=== PATIENT | female | born 1945 ===

== ENCOUNTER 2017-05-06 17:55 | Emergency (ER) | payer MEDICARE, MEDICAID ==
[2017-05-06 17:55] VITALS: BMI 20.7
[2017-05-06] MEDS ORDERED: Sodium Chloride 0.9% 500 ML IV ONE (19:58)
[2017-05-06 20:20] LABS: BASO # 0.1 K/uL (0.0-0.2); BASO % 0.8 % (0.0-2.0); EOS # 0.4 K/uL (0.0-0.7); EOS % 4.1 % (0.0-4.0); HEMATOCRIT 34.8 % (34.0-47.0); LYMPH # 3.3 K/uL (1.0-4.3); LYMPH % 35.6 % (20.0-40.0); MEAN CELL VOLUME 85.1 fL (81.0-99.0); MEAN CORPUSCULAR HEMOGLOBIN 27.8 pg (27.0-31.0); MEAN CORPUSCULAR HGB CONC 32.7 g/dL (33.0-37.0); MEAN PLATELET VOLUME 8.7 fL (7.2-11.7); MONO # 0.8 K/uL (0.0-0.8); RED CELL DISTRIBUTION WIDTH 13.2 % (11.5-14.5); WHITE BLOOD COUNT 9.2 K/uL (4.8-10.8)
[2017-05-06 20:25] LABS: RBC URINE < 1 /hpf (0-3); URINE BACTERIA RARE (<OCC); URINE BILIRUBIN NEGATIVE (NEGATIVE); URINE BLOOD 1+ (NEGATIVE); URINE COLOR Colorless (YELLOW); URINE GLUCOSE (UA) NORMAL (Normal); URINE KETONE NEGATIVE (NEGATIVE); URINE PROTEIN NEGATIVE (NEGATIVE); URINE UROBILINOGEN NORMAL mg/dL (0.2-1.0)
[2017-05-06 20:28] LABS: URINE LEUKOCYTE ESTERASE 1+ Leu/uL (Negative); WBC URINE 5 /hpf (0-5)
[2017-05-06 20:29] LABS: CHLORIDE 101 mmol/L (98-107); POTASSIUM 4.1 mmol/L (3.6-5.2); SODIUM 135 mmol/L (132-148)
[2017-05-06 20:31] LABS: GFR AFRICAN-AMERICAN > 60
[2017-05-06 20:32] LABS: ALKALINE PHOSPHATASE 62 U/L (38-126); ALT/SGPT 38 U/L (9-52); AST/SGOT 19 U/L (14-36); BILIRUBIN,TOTAL 0.4 mg/dL (0.2-1.3); BLOOD UREA NITROGEN 10 mg/dL (7-17); CALCIUM 9.1 mg/dl (8.6-10.4); CARBON DIOXIDE 28 mmol/L (22-30); GLUCOSE,RANDOM 91 mg/dL (65-105); TOTAL PROTEIN 7.9 g/dL (6.3-8.3)
--- NOTE | 2017-05-06 22:05 | C.PDOC ---
History Of Present Illness Patient presents to ED c/o dizziness, described as the room spinning around, her for approx 2 weeks but worse today. Dizziness worsens with movement of her head, and is associated with nausea and generalized weakness. Patient denies chest pain, SOB, palpitations, focal extremity weakness, sensory changes, facial droop, slurred speech, visual changes. Time Seen by Provider: 05/06/17 19:41 Chief Complaint (Nursing): Weakness/Neurological Deficit History Per: Patient, Family (daughter at bedside ) History/Exam Limitations: language barrier Onset/Duration Of Symptoms: Days (2 weeks, worse roday ) Current Symptoms Are (Timing): Still Present Activity At Onset Of Symptoms: Change In Head Position Past Medical History Reviewed: Historical Data, Nursing Documentation, Vital Signs Vital Signs: Last Vital Signs Temp 97.5 F L 05/06/17 22:18 Pulse 80 05/06/17 22:18 Resp 20 05/06/17 22:18 BP 127/70 05/06/17 22:18 Pulse Ox 100 05/06/17 22:18 - Medical History PMH: Anemia, Osteoporosis Other PMH: deboraha nella - [facility] Procedures CLOSED ENDOSCOPIC BIOPSY OF LARGE INTESTINE (06/25/13) ESOPHAGOGASTRODUODENOSCOPY [EGD] W/CLOSED BIOPSY (06/25/13) Family History: States: No Known Family Hx - Social History Hx Alcohol Use: No Hx Substance Use: No Review Of Systems Except As Marked, All Systems Reviewed And Found Negative. Constitutional: Negative for: Fever, Chills Cardiovascular: Negative for: Chest Pain, Palpitations Respiratory: Negative for: Cough, Shortness of Breath Gastrointestinal: Positive for: Nausea. Negative for: Vomiting, Abdominal Pain , Diarrhea Neurological: Positive for: Dizziness. Negative for: Weakness, Numbness, Seizures, Altered Mental Status, Headache Physical Exam - Physical Exam Appears: Well, Non-toxic, In Acute Distress (in mild distress) Skin: Normal Color, Warm, Dry Head: Atraumatic, Normacephalic Eye(s): bilateral: Normal Inspection (no nystagmus), PERRL, EOMI Oral Mucosa: Moist Neck: Normal, Normal ROM, Supple, Other (no meningismus) Cardiovascular: Rhythm Regular Respiratory: Normal Breath Sounds, No Rales, No Rhonchi, No Wheezing Gastrointestinal/Abdominal: Normal Exam, Bowel Sounds, Soft, No Tenderness Extremity: Normal ROM, No Pedal Edema, No Calf Tenderness, No Deformity Extremity: Bilateral: Atraumatic, Normal Color And Temperature, Normal ROM Pulses: Left Dorsalis Pedis: Normal, Right Dorsalis Pedis: Normal Neurological/Psych: Oriented x3, Normal Speech, Normal Cognition, Normal Cranial Nerves, No Cerebellar Signs, Normal Motor, Normal Sensation, No Dysarthria, No Romberg Gait: Steady ED Course And Treatment - Laboratory Results Result Diagrams: 05/06/17 20:16 05/06/17 20:16 ECG: Interpreted By Me, Viewed By Me (NST 71 bpm, left axis deviation, no acute ST/T wave changes) ECG Interpretation: Normal O2 Sat by Pulse Oximetry: 97 (RA) Pulse Ox Interpretation: Normal - CT Scan/US CT HEAD Other Rad Studies (CT/US): Read By Radiologist, Radiology Report Reviewed CT/US Interpretation: Name: JENNIFER SHELTON Age: 71Years F Date: 05/06/2017. Requesting Physician: BELÉN SIMMONS : 1945. [facility] Procedure Ordered As Accession Number of Images. CT HEAD WO CT HEAD W O CONTRAST [id number]. Provided Clinical History: DIZZINESS. Page 1 of 2. EXAM: CT Head Without Intravenous Contrast. CLINICAL HISTORY: 71 years old, female; Signs and symptoms; Dizziness. TECHNIQUE: Axial computed tomography images of the head/brain without intravenous contrast. All CT scans at. this facility use one or more dose reduction techniques, viz.: automated exposure control; ma/kV. adjustment per patient size (including targeted exams where dose is matched to indication; i.e. head);. or iterative reconstruction technique. Coronal and sagittal reformatted images were created and reviewed. COMPARISON: No relevant prior studies available. FINDINGS: Brain: Mild volume loss is seen in keeping with age. Mild decrease in attenuation of the. periventricular white matter likely related to small vessel ischemic change. The brain otherwise with. normal guerrero-white matter differentiation, demonstrating no edema, mass effect, acute hemorrhage, or. focal mass. Ventricles: Unremarkable. No ventriculomegaly. Bones/joints: Unremarkable. No acute fracture. Soft tissues: Unremarkable. Sinuses: Sinuses are clear without air-fluid levels, or mucoperiosteal thickening. Mastoid air cells: Unremarkable as visualized. No mastoid effusion. IMPRESSION: There is mild atrophy and chronic white matter ischemic changes, with no evidence of an acute. intracranial abnormality. Progress Note: Blood work, CT head, UA, EKG ordered and reviewed. Patient given IV NS bolus, PO Meclizine 50mg. Reevaluation Time: 22:10 Reassessment Condition: Improved (On reassessment, patient states she is feeling much better. She is able to ambulate normally in ED, and states she would like to be discharged home. rx for meclizine given, and patient instructed to follow up with PMD in 1-2 days, and with ENT within 1 week. She/ daughter understand she should return to ED if symptoms worsen.) Disposition Counseled Patient/Family Regarding: Studies Performed, Diagnosis, Need For Followup, Rx Given - Disposition Referrals: Glenna Ellis MD [Staff Provider] - Howard Clay MD [Staff Provider] - Disposition: HOME/ ROUTINE Disposition Time: 22:10 Condition: STABLE Additional Instructions: FOLLOW UP WITH ENT WITHIN 1 WEEK USE MEDICATION NEEDED RETURN TO ER IF SYMPTOMS WORSEN Prescriptions: Meclizine [Meclizine*] 25 mg PO Q6 #20 tab Instructions: Benign Paroxysmal Positional Vertigo (ED) Forms: [facility] (Irish) Print Language: JAMAICAN - Clinical Impression Clinical Impression: BPV (benign positional vertigo)
[2017-05-06 22:19] VITALS: BP 127/70; PULSE 80; RESP 20; TEMP 97.5
[2017-05-07 00:16] VITALS: O2SAT 97
--- NOTE | 2017-05-07 08:28 | CT ---
PROCEDURE: CT HEAD WITHOUT CONTRAST. HISTORY: DIZZINESS COMPARISON: None available. TECHNIQUE: Axial computed tomography images were obtained through the head/brain without intravenous contrast. Radiation dose: Total exam DLP = 752 mGy-cm. This CT exam was performed using one or more of the following dose reduction techniques: Automated exposure control, adjustment of the mA and/or kV according to patient size, and/or use of iterative reconstruction technique. FINDINGS: HEMORRHAGE: No intracranial hemorrhage. BRAIN: Mild volume loss. Scattered focal lucencies in the subcortical and periventricular white matter suggestive for chronic microvascular ischemic change. VENTRICLES: Unremarkable. No hydrocephalus. CALVARIUM: Unremarkable. PARANASAL SINUSES: Unremarkable as visualized. No significant inflammatory changes. MASTOID AIR CELLS: Unremarkable as visualized. No inflammatory changes. OTHER FINDINGS: None. IMPRESSION: Mild atrophy and chronic white matter ischemic changes. No evidence of acute intracranial abnormality. If focal neurologic deficit persists, consider MRI. These findings were preliminarily reported at 9:24 p.m. on 05/06/[address] Anthony Tabares from [facility].
--- NOTE | 2017-05-07 12:24 | CARD ---
APPROVED REPORT EKG Measurement Heart [id number] <Conclusion> Normal sinus rhythm Possible Left atrial enlargement Borderline ECG
== END 2017-05-06 22:21 | disposition home or self-care (01) ==
LOC: C.ER 17:55
DX: H81.10 Benign paroxysmal vertigo, unspecified ear (principal)
CPT/HCPCS: 70450; 80053; 81001; 85025; 93005; 99285; J7040

== ENCOUNTER 2017-09-18 08:01 | Day surgery (SDC) | payer MEDICARE, MEDICAID ==
[2017-09-02 08:17] VITALS: BMI 21.4
[~2017-09-18 08:01] MED LIST: Ciprofloxacin 0.3% OPTH SOLN OS SCH; Flurbiprofen 0.03% Opht SOLN OS SCH; Lactated Ringer's 500 ML IV ONE; Phenylephrine 2.5% Opht Soln OS SCH; Tropicamide 1% Opht SOLUTION OS SCH; acetaZOLAMIDE 500 mg SR Cap PO ONE
[2017-09-18] MEDS: Tetracaine 0.5% Ophth (OR ONLY) ONE ×2 (08:27→11:05)
[2017-09-18] MEDS: Lidocaine 2% Inj (20ml) ONE ×2 (08:28→11:06)
[2017-09-18] MEDS: Povidone Iodine Ophthalmic 5% Soln ONE ×2 (08:28→11:05)
[2017-09-18] MEDS: Hyaluronidase Human, Recombi 150 U/ML VIAL ONE ×2 (08:30→11:06)
[2017-09-18] MEDS: Carbachol 0.01% IO ONE ×2 (08:31→11:12)
[2017-09-18] MEDS: Tobramycin/Dexamethasone OPHT OINT ONE ×2 (08:32→11:25)
[2017-09-18] MEDS: Chondroitin/Hyaluronate Opth Syringe KIT (0.55 ml-0.5 ml) IO ONE ×2 (08:34→11:15)
[2017-09-18] MEDS ORDERED: Lactated Ringer's 500 ML IV ONE (08:50)
[2017-09-18] MEDS ORDERED: Midazolam 2 MG/2 ML VIAL ONE (11:05)
[2017-09-18] MEDS ORDERED: acetaZOLAMIDE 500 mg SR Cap PO ONE (11:45)
[2017-09-18 13:38] VITALS: PULSE 72; RESP 16; O2SAT 99
[2017-09-18 13:39] VITALS: BP 105/57; TEMP 97.4
--- NOTE | 2017-09-18 20:16 | OP ---
PROCEDURE DATE: 09/18/2017 PREOPERATIVE DIAGNOSIS: Cataract, left eye. POSTOPERATIVE DIAGNOSIS: Cataract, left eye. OPERATIVE PROCEDURE: Phacoemulsification, left eye, insertion of posterior chamber implant. SURGEON: Dr. Luis Vargas MD. CO-SURGEON: Lucius Shaw MD. ANESTHESIA TYPE: Local with IV sedation. PROCEDURE: The patient was brought into the operating room, placed in supine position, prepped and draped in the usual fashion for ophthalmic surgery. Lid speculum was inserted, lids and exposing globe. A side-port incision was made superiorly and inferiorly with a disposable sharp blade. Anterior chamber was filled with Viscoat. A near clear corneal incision was made temporally with a 2.75-mm keratome. Capsulorrhexis was then performed with Utrata forceps. Hydrodissection carried out with balanced salt solution. Nucleus was phacoemulsified. Remaining cortical fragments were removed with a split irrigation and aspiration system. The capsular sac was filled with Provisc. A posterior chamber lens was then injected into the capsular sac and rotated into horizontal position. Provisc was aspirated out of the anterior chamber. The pupil was constricted with Miochol. The wound was found to be watertight. Topical Betadine, Timoptic, and TobraDex ointment and pressure patch were applied. The patient tolerated the procedure well. Luis Vargas MD
== END 2017-09-18 12:38 | disposition home or self-care (01) ==
LOC: C.SDS 08:01
PROVIDERS: ATTEND Ophthalmology
DX: H25.12 Age-related nuclear cataract, left eye (principal)
CPT/HCPCS: 66984; J2250; J3010; J3470; J7120; V2632

== ENCOUNTER 2017-12-18 05:55 | Emergency (ER) | payer MEDICARE, MEDICAID ==
[2017-12-18 05:55] VITALS: BMI 21.4
[2017-12-18] MEDS ORDERED: Sodium Chloride 0.9% 1,000 ML IV ONE (06:18)
--- NOTE | 2017-12-18 06:18 | C.PDOC ---
History Of Present Illness Patient presents to the ER with a complaint of vomiting and diarrhea for the past 2 days that has worsened today. Patient states she feels like everything she eats comes out. Denies fever or chills. Time Seen by Provider: 12/18/17 06:17 Chief Complaint (Nursing): GI Problem History Per: Patient History/Exam Limitations: no limitations Onset/Duration Of Symptoms: Days Current Symptoms Are (Timing): Still Present Severity: Moderate Pain Scale Rating Of: 4 Location Of Pain/Discomfort: Diffuse Radiation Of Pain To:: None Quality Of Discomfort: Unable To Describe Associated Symptoms: Vomiting, Diarrhea. denies: Fever, Chills Exacerbating Factors: None Alleviating Factors: None Recent travel outside of the [place]: No Abnormal Vaginal Bleeding: No Past Medical History Reviewed: Historical Data, Nursing Documentation, Vital Signs Vital Signs: Last Vital Signs Temp 98.4 F 12/18/17 06:01 Pulse 78 12/18/17 06:01 Resp 14 12/18/17 06:01 BP 131/84 12/18/17 06:01 Pulse Ox 98 12/18/17 06:31 - Medical History PMH: Anemia, Arthritis (KNEE PAIN), Gastritis, Hypercholesterolemia, Osteoporosis Surgical History: Appendectomy, Endoscopy - [facility] Procedures CLOSED ENDOSCOPIC BIOPSY OF LARGE INTESTINE (06/25/13) ESOPHAGOGASTRODUODENOSCOPY [EGD] W/CLOSED BIOPSY (06/25/13) Family History: States: No Known Family Hx - Social History Hx Alcohol Use: No Hx Substance Use: No Review Of Systems Constitutional: Negative for: Fever, Chills Cardiovascular: Negative for: Chest Pain, Palpitations Respiratory: Negative for: Cough, Shortness of Breath Gastrointestinal: Positive for: Vomiting, Abdominal Pain, Diarrhea Genitourinary: Negative for: Dysuria, Hematuria Physical Exam - Physical Exam Appears: Other (Weak) Skin: Warm, Dry Head: Normacephalic Oral Mucosa: Dry Chest: Symmetrical, No Tenderness Cardiovascular: Rhythm Regular Respiratory: No Rales, No Rhonchi, No Wheezing Gastrointestinal/Abdominal: Soft, Tenderness (Diffuse discomfort), No Guarding, No Rebound Neurological/Psych: Oriented x3 ED Course And Treatment O2 Sat by Pulse Oximetry: 98 (Room air) Pulse Ox Interpretation: Normal Progress Note: Blood work and urinalysis ordered. Protonix, zofran, and IV fluids administered. Disposition Counseled Patient/Family Regarding: Studies Performed, Diagnosis - Disposition Disposition Time: 06:17 Condition: FAIR Forms: [facility] (Maltese) - Clinical Impression Clinical Impression: Abdominal pain, Diarrhea - Scribe Statement The provider has reviewed the documentation as recorded by the Scribe Luis Albarran All medical record entries made by the Scribe were at my direction and personally dictated by me. I have reviewed the chart and agree that the record accurately reflects my personal performance of the history, physical exam, medical decision making, and the department course for this patient. I have also personally directed, reviewed, and agree with the discharge instructions and disposition. Physician Patient Turnover Patient Signed Over To: Sandip Phillips Handoff Comments: pending labs, re-eval and dispostion
[2017-12-18 06:40] LABS: VENOUS BLOOD GAS BASE EXCESS 0.3 mmol/L (0.0-2.0); VENOUS BLOOD GAS PCO2 42 mmHg (40-60); VENOUS BLOOD GAS PO2 25 mm/Hg (30-55); VENOUS BLOOD PH 7.39 (7.32-7.43)
[2017-12-18 06:41] LABS: BASO # 0.1 K/uL (0.0-0.2); BASO % 0.6 % (0.0-2.0); EOS # 0.1 K/uL (0.0-0.7); EOS % 0.9 % (0.0-4.0); HEMOGLOBIN 12.7 g/dL (11.0-16.0); LYMPH # 1.9 K/uL (1.0-4.3); LYMPH % 23.8 % (20.0-40.0); MEAN CELL VOLUME 83.9 fL (81.0-99.0); MEAN CORPUSCULAR HEMOGLOBIN 28.2 pg (27.0-31.0); MEAN CORPUSCULAR HGB CONC 33.7 g/dL (33.0-37.0); MEAN PLATELET VOLUME 8.2 fL (7.2-11.7); MONO # 0.8 K/uL (0.0-0.8); MONO % 9.9 % (0.0-10.0); NEUT # 5.3 K/uL (1.8-7.0); NEUT % 64.8 % (50.0-75.0); NRBC % 0.1 % (0.0-2.0); RBC 4.5 Mil/uL (3.80-5.20); WHITE BLOOD COUNT 8.2 K/uL (4.8-10.8)
[2017-12-18 06:58] LABS: ALB/GLOB RATIO 1.2 (1.0-2.1); ALBUMIN 4.4 g/dL (3.5-5.0); ALT/SGPT 28 U/L (9-52); AST/SGOT 36 U/L (14-36); BLOOD UREA NITROGEN 10 mg/dL (7-17); CALCIUM 9.5 mg/dl (8.6-10.4); GFR AFRICAN-AMERICAN > 60; GFR NON-AFRICAN AMERICAN > 60; LIPASE 363 U/L (23-300)
[2017-12-18 07:06] LABS: INR 1.1; PROTHROMBIN TIME 11.8 SECONDS (9.7-12.2)
[2017-12-18 07:15] VITALS: O2SAT 97
[2017-12-18 07:40] LABS: SQUAMOUS EPITHIAL < 1 /hpf (0-5); URINE BILIRUBIN NEGATIVE (NEGATIVE); URINE BLOOD NEGATIVE (NEGATIVE); URINE CLARITY Clear (Clear); URINE COLOR Straw (YELLOW); URINE GLUCOSE (UA) NORMAL (Normal); URINE LEUKOCYTE ESTERASE NEG Leu/uL (Negative); URINE PROTEIN NEGATIVE (NEGATIVE); URINE UROBILINOGEN NORMAL mg/dL (0.2-1.0)
[2017-12-18 08:48] VITALS: BP 106/72; PULSE 82; RESP 18; TEMP 98.7
== END 2017-12-18 08:48 | disposition home or self-care (01) ==
LOC: C.ER 05:55
DX: R10.9 Unspecified abdominal pain (principal); R19.7 Diarrhea, unspecified; D64.9 Anemia, unspecified; E78.00 Pure hypercholesterolemia, unspecified
CPT/HCPCS: 80053; 81001; 82803; 83690; 85025; 85610; 85730; 96374; 96375; 99285; C9113; J2405; J7030

== ENCOUNTER 2017-12-19 13:51 | Inpatient (IN) | payer MEDICARE, MEDICAID ==
[2017-12-19 13:51] VITALS: BMI 21.4
[2017-12-19] MEDS ORDERED: Sodium Chloride 0.9% 1,000 ML IV ONE (16:08)
[2017-12-19 16:30] LABS: BASO % 0.5 % (0.0-2.0); EOS # 0.1 K/uL (0.0-0.7); EOS % 1.2 % (0.0-4.0); HEMOGLOBIN 12.3 g/dL (11.0-16.0); LYMPH # 1.3 K/uL (1.0-4.3); LYMPH % 15.5 % (20.0-40.0); MEAN CELL VOLUME 83.5 fL (81.0-99.0); MEAN CORPUSCULAR HEMOGLOBIN 27.8 pg (27.0-31.0); MEAN CORPUSCULAR HGB CONC 33.3 g/dL (33.0-37.0); MEAN PLATELET VOLUME 7.7 fL (7.2-11.7); MONO % 11.9 % (0.0-10.0); NEUT # 5.8 K/uL (1.8-7.0); NEUT % 70.9 % (50.0-75.0); RBC 4.44 Mil/uL (3.80-5.20); RED CELL DISTRIBUTION WIDTH 13.7 % (11.5-14.5); WHITE BLOOD COUNT 8.2 K/uL (4.8-10.8)
[2017-12-19 16:46] LABS: ALBUMIN 4.2 g/dL (3.5-5.0); ALT/SGPT 31 U/L (9-52); AST/SGOT 32 U/L (14-36); BLOOD UREA NITROGEN 9 mg/dL (7-17); CALCIUM 9.4 mg/dl (8.6-10.4); GFR AFRICAN-AMERICAN > 60; GFR NON-AFRICAN AMERICAN > 60; LIPASE 260 U/L (23-300)
--- NOTE | 2017-12-19 16:52 | C.PDOC ---
History Of Present Illness 72-year-old female presents to the ED for evaluation of abdominal pain, vomiting and diarrhea which began a few days ago. Patient was evaluated in this ED yesterday for similar complaints. Patient was discharged after her symptoms improved and she was able to tolerate PO intake. Patient notes her symptoms have reoccurred and returns to the ED for evaluation. She denies fever, chills, chest pain, shortness of breath, blood in vomitus/stools. Time Seen by Provider: 12/19/17 16:05 Chief Complaint (Nursing): GI Problem History Per: Patient History/Exam Limitations: no limitations Onset/Duration Of Symptoms: Days Current Symptoms Are (Timing): Still Present Location Of Pain/Discomfort: Diffuse Quality Of Discomfort: "Pain" Associated Symptoms: Vomiting, Diarrhea. denies: Fever, Chills, Chest Pain Additional History Per: Patient Abnormal Vaginal Bleeding: No Past Medical History Reviewed: Historical Data, Nursing Documentation, Vital Signs Vital Signs: Last Vital Signs Temp 98.3 F 12/19/17 14:26 Pulse 98 H 12/19/17 18:45 Resp 18 12/19/17 18:45 BP 130/56 L 12/19/17 18:45 Pulse Ox 98 12/19/17 18:45 - Medical History PMH: Anemia, Arthritis (KNEE PAIN), Gastritis, Hypercholesterolemia, Osteoporosis Denies: Chronic Kidney Disease Surgical History: Appendectomy, Endoscopy - [facility] Procedures CLOSED ENDOSCOPIC BIOPSY OF LARGE INTESTINE (06/25/13) ESOPHAGOGASTRODUODENOSCOPY [EGD] W/CLOSED BIOPSY (06/25/13) Family History: States: Unknown Family Hx - Social History Hx Alcohol Use: No Hx Substance Use: No Review Of Systems Constitutional: Negative for: Fever, Chills Cardiovascular: Negative for: Chest Pain Respiratory: Negative for: Shortness of Breath Gastrointestinal: Positive for: Vomiting, Abdominal Pain, Diarrhea Physical Exam - Physical Exam Appears: Non-toxic, No Acute Distress Skin: Normal Color, Warm, Dry Head: Atraumatic, Normacephalic Eye(s): bilateral: Normal Inspection Oral Mucosa: Moist Neck: Supple Chest: Symmetrical, No Deformity, No Tenderness Cardiovascular: Rhythm Regular, No Murmur Respiratory: Normal Breath Sounds, No Rales, No Rhonchi, No Wheezing Gastrointestinal/Abdominal: Bowel Sounds (positive ), Soft, Tenderness (diffuse) , No Guarding, No Rebound Extremity: Normal ROM, Capillary Refill (less than 2 seconds ) Neurological/Psych: Oriented x3, Normal Speech, Normal Cognition ED Course And Treatment - Laboratory Results Result Diagrams: 12/19/17 16:25 12/19/17 16:25 ECG: Interpreted By Me, Viewed By Me ECG Rhythm: Sinus Rhythm Interpretation Of ECG: Normal sinus rhythm at rate 96bpm. Normal intervals, normal axis. Nonspecifitic ST/T wave changes. Rate From EC O2 Sat by Pulse Oximetry: 100 (on RA) Pulse Ox Interpretation: Normal Medical Decision Making Medical Decision Making: Assessment: abdominal pain, nausea, vomiting Plan: * bloodwork * urinalysis * CT A/P * CXR * EKG * Pepcid IVP * Zofran IVP * IV Fluids * reassess and disposition Progress: Bloodwork, urinalysis, CT A/P, CXR, EKG ordered and reviewed. Pepcid IVP, Zofran IVP and IV Fluids adminsitered. 1855- patient resting comfortable. Discussed with DR. Velasquez and would like full admission to medical floor. vice president diversity notified. Disposition Discussed With : Arnoldo Velasquez Jr. Doctor Will See Patient In The: Hospital Counseled Patient/Family Regarding: Studies Performed, Diagnosis - Disposition Disposition: HOSPITALIZED Disposition Time: 18:58 Condition: FAIR Forms: [facility] (German) - Clinical Impression Clinical Impression: Colitis - Scribe Statement The provider has reviewed the documentation as recorded by the Scribe (Rosa Briceño) Provider Attestation: All medical record entries made by the Scribe were at my direction and personally dictated by me. I have reviewed the chart and agree that the record accurately reflects my personal performance of the history, physical exam, medical decision making, and the department course for this patient. I have also personally directed, reviewed, and agree with the discharge instructions and disposition.
--- NOTE | 2017-12-19 16:59 | RAD ---
PROCEDURE: CHEST RADIOGRAPH, 1 VIEW HISTORY: Abdominal pain COMPARISON: 09/02/2017. FINDINGS: LUNGS: The lungs are well inflated and clear. PLEURA: No pneumothorax or pleural fluid seen. CARDIOVASCULAR: Normal. OSSEOUS STRUCTURES: No significant abnormalities. VISUALIZED UPPER ABDOMEN: Normal. OTHER FINDINGS: None. IMPRESSION: No active pulmonary disease.
[2017-12-19] MEDS ORDERED: Iohexol 300 100 ML IJ ONE (17:31)
[2017-12-19 17:41] LABS: SQUAMOUS EPITHIAL < 1 /hpf (0-5); URINE BILIRUBIN NEGATIVE (NEGATIVE); URINE BLOOD 1+ (NEGATIVE); URINE CLARITY Clear (Clear); URINE COLOR Yellow (YELLOW); URINE GLUCOSE (UA) NORMAL (Normal); URINE LEUKOCYTE ESTERASE NEG Leu/uL (Negative); URINE PROTEIN NEGATIVE (NEGATIVE); URINE UROBILINOGEN NORMAL mg/dL (0.2-1.0)
--- NOTE | 2017-12-19 18:44 | CT ---
PROCEDURE: CT Abdomen and Pelvis with contrast HISTORY: Abdominal pain COMPARISON: 09/02/2017. TECHNIQUE: CT scan of the abdomen and pelvis was performed after administration of intravenous contrast. Oral contrast was not administered. Coronal and sagittal reformatted images were obtained. Contrast dose: 100 mL Omnipaque 300 Radiation dose: Total exam DLP = 200.48 mGy-cm. This CT exam was performed using one or more of the following dose reduction techniques: Automated exposure control, adjustment of the mA and/or kV according to patient size, and/or use of iterative reconstruction technique. FINDINGS: LOWER THORAX: The visualized lungs are clear. LIVER: Mild hepatomegaly and fatty liver. No gross lesion or ductal dilatation. GALLBLADDER AND BILE DUCTS: No calcified gallstones. PANCREAS: Normal in size with homogeneous enhancement. No gross lesion or ductal dilatation. SPLEEN: Normal in size and appearance. ADRENALS: No discrete nodule. KIDNEYS AND URETERS: Normal in size with homogeneous enhancement. No hydronephrosis. Question of a tiny angiomyolipoma in the posteromedial left kidney. VASCULATURE: No aortic aneurysm. BOWEL: The proximal small bowel loops are normal in caliber. There is mild dilatation of fluid-filled distal small bowel loops and mild diffuse dilatation of fluid-filled colon. There is diffuse mucosal enhancement in the distal small bowel and colon. APPENDIX: No inflammatory changes in the right lower quadrant. PERITONEUM: No free fluid. No free air. Small sliding hiatal hernia. LYMPH NODES: There is mild enlargement of the mesenteric lymph nodes. BLADDER: Grossly normal in appearance nremarkable. REPRODUCTIVE: The uterus is surgically absent. BONES: No acute fracture. Mild levoscoliosis in the lumbar spine. Diffuse bone demineralization. OTHER FINDINGS: There is a small sliding hiatal hernia. IMPRESSION: Findings are most compatible with nonspecific infectious/ inflammatory enterocolitis. No bowel obstruction.
[2017-12-19] MEDS ORDERED: Morphine 4 MG/ML VIAL IV STA (18:56)
[2017-12-19] MEDS ORDERED: Ciprofloxacin 400mg/200ml D5W 400 MG/200 ML BAG IVPB STA (18:56)
[2017-12-19] MEDS ORDERED: metroNIDAZOLE IV 500 mg/100 ml 500 MG/100 ML BAG IVPB STA (18:57)
[2017-12-19] MEDS ORDERED: metroNIDAZOLE IV 500 mg/100 ml 500 MG/100 ML BAG ONE (19:35)
[2017-12-19 19:39] VITALS: RESP 20
[2017-12-19] MEDS ORDERED: Ciprofloxacin 400mg/200ml D5W 400 MG/200 ML BAG IVPB SCH (20:30)
[2017-12-19] MEDS ORDERED: Lactated Ringer's 1,000 ML IV SCH (20:30)
[2017-12-19] MEDS ORDERED: Ciprofloxacin 400mg/200ml D5W 400 MG/200 ML BAG IVPB ONE (20:38)
--- NOTE | 2017-12-19 20:44 | CP.PCM.HP ---
History of Present Illness - History of Present Illness History of Present Illness: CC: "I've been vomiting and having diarrhea" HPI: 72 year old female with past medical history of acid reflux presents to the ER for vomiting and diarrhea. Patient states the episodes started on Saturday evening with lower abdominal pain. She denies eating anything abnormal as she is a vegetarian. Patient states she had 20 episodes of watery diarrhea today and 4 episodes of vomiting. Patient denies blood in her stool or vomit. She denies taking antibiotics in the past couple of months. She denies sick contacts or recent travel. She states every time she eats she has diarrhea and for that reason she started wearing a diaper. She states she felt like she had a fever at home and now she has been having chills. She denies shortness of breath, chest pain, dysuria, hematuria or headache. PMD: Dr. Glenna Ellis Past Medical History: Acid Reflux Past Surgical History: Hysterectomy and appendectomy Medications: Nexium daily; Lipitor 20mg daily Allergies: NKDA Social history: Lives with ; denies smoking, alcohol or illicit drug use. Present on Admission - Present on Admission Any Indicators Present on Admission: No Review of Systems - Constitutional Constitutional: Chills, Fever - EENT Eyes: absent: Blurred Vision, Change in Vision - Cardiovascular Cardiovascular: absent: Chest Pain, Dyspnea - Respiratory Respiratory: absent: Dyspnea - Gastrointestinal Gastrointestinal: Abdominal Pain, Loose Stools, Nausea, Vomiting. absent: Hematemesis, Hematochezia - Genitourinary Genitourinary: absent: Dysuria, Hematuria - Musculoskeletal Musculoskeletal: absent: Numbness, Tingling - Integumentary Integumentary: absent: Rash - Neurological Neurological: absent: Headaches Past Patient History - Past Medical History & Family History Past Medical History?: Yes - Past Social History Smoking Status: Never Smoked - CARDIAC Hx Hypercholesterolemia: Yes - PULMONARY Hx Respiratory Disorders: Yes (POLLEN ALLERGY) - NEUROLOGICAL Hx Neurological Disorder: No - HEENT Hx HEENT Problems: Yes Hx Cataracts: Yes - RENAL Hx Chronic Kidney Disease: No - ENDOCRINE/METABOLIC Hx Endocrine Disorders: No - HEMATOLOGICAL/ONCOLOGICAL Hx Anemia: Yes - INTEGUMENTARY Hx Dermatological Problems: Yes - MUSCULOSKELETAL/RHEUMATOLOGICAL Hx Arthritis: Yes (KNEE PAIN) Hx Osteoporosis: Yes - GASTROINTESTINAL Hx Gastritis: Yes - GENITOURINARY/GYNECOLOGICAL Hx Reproductive Disorders: Yes (HEAVY MENSES /HYSTERECTOMY AGE 37) - PSYCHIATRIC Hx Substance Use: No - SURGICAL HISTORY Hx Appendectomy: Yes - ANESTHESIA Hx Anesthesia: Yes Hx Anesthesia Reactions: No Hx Malignant Hyperthermia: No Meds Allergies/Adverse Reactions: Allergies Allergy/AdvReac Type Severity Reaction Status Date / Time pollen extracts Allergy Intermediate ITCHING Verified 12/18/17 06:06 Physical Exam - Constitutional Appears: No Acute Distress - Head Exam Head Exam: ATRAUMATIC, NORMAL INSPECTION - Eye Exam Eye Exam: EOMI, Normal appearance, PERRL Pupil Exam: NORMAL ACCOMODATION - ENT Exam ENT Exam: Mucous Membranes Dry - Respiratory Exam Respiratory Exam: Clear to Auscultation Bilateral, NORMAL BREATHING PATTERN - Cardiovascular Exam Cardiovascular Exam: Tachycardia, REGULAR RHYTHM, +S1, +S2 - GI/Abdominal Exam GI & Abdominal Exam: Normal Bowel Sounds, Soft, Tenderness (lower abdominal tenderness). absent: Distended, Firm, Guarding - Rectal Exam Rectal Exam: NORMAL INSPECTION. absent: Black Stool, Bloody Stool, Hemorrhoids - Extremities Exam Extremities exam: Positive for: normal capillary refill, normal inspection, pedal pulses present. Negative for: pedal edema, tenderness - Neurological Exam Neurological exam: Alert, Oriented x3 - Psychiatric Exam Psychiatric exam: Normal Affect, Normal Mood - Skin Skin Exam: Normal Color Results - Vital Signs Recent Vital Signs: Last Vital Signs Temp 98.3 F 12/19/17 14:26 Pulse 96 H 12/19/17 19:37 Resp 20 12/19/17 19:37 BP 120/69 12/19/17 19:37 Pulse Ox 97 12/19/17 19:37 - Labs Result Diagrams: 12/19/17 16:25 12/19/17 16:25 Labs: Laboratory Results - last 24 hr 12/19/17 12/19/17 12/19/17 16:25 16:25 17:29 WBC 8.2 RBC 4.44 Hgb 12.3 Hct 37.1 MCV 83.5 MCH 27.8 MCHC 33.3 RDW 13.7 Plt Count 291 MPV 7.7 Neut % (Auto) 70.9 Lymph % (Auto) 15.5 L [place] % (Auto) 11.9 H Eos % (Auto) 1.2 Baso % (Auto) 0.5 Neut # (Auto) 5.8 Lymph # (Auto) 1.3 [place] # (Auto) 1.0 H Eos # (Auto) 0.1 Baso # (Auto) 0.0 Sodium 137 Potassium 4.1 Chloride 100 Carbon Dioxide 23 Anion Gap 19 BUN 9 Creatinine 0.9 Est GFR ( Amer) > 60 Est GFR (Non-Af Amer) > 60 Random Glucose 115 H Calcium 9.4 Total Bilirubin 0.7 AST 32 ALT 31 Alkaline Phosphatase 86 Troponin I < 0.0120 Total Protein 8.1 Albumin 4.2 Globulin 4.0 H Albumin/Globulin Ratio 1.0 Lipase 260 Urine Color Yellow Urine Clarity Clear Urine pH 5.0 Ur Specific [place] 1.010 Urine Protein Negative Urine Glucose (UA) Normal Urine Ketones Trace Urine Blood 1+ H Urine Nitrate Negative Urine Bilirubin Negative Urine Urobilinogen Normal Ur Leukocyte Esterase Neg Urine WBC (Auto) 1 Urine RBC (Auto) 6 H Ur Squamous Epith Cells < 1 Assessment & Plan - Assessment and Plan (Free Text) Assessment: Vomiting/Diarrhea - secondary entercolitis - Abd/Pelvis CT: Findings are most compatible with nonspecific infectious/ inflammatory enterocolitis. No bowel obstruction. - Chest xray: no active pulmonary disease - f/u Cdiff; stool occult; stool studies; blood culture - afebrile; WBC 8.2 - Medications: * Metrondiazole 500mg q8h * Cipro 400mg q12h * Zofran q6 prn nausea * Florastor daily * LR @150cc/hr * Tylenol q6 prn for pain History of Gastritis - Protonix 40mg daily Prophylaxis - Liquid Diet - Protonix 40mg daily - SCDs - Lovenox 40mg daily Case discussed with Dr. Eva Gray PGY-2
[2017-12-19] MEDS: Lactated Ringer's 1,000 ML IV SCH (21:34)
[2017-12-20] MEDS: metroNIDAZOLE IV 500 mg/100 ml 500 MG/100 ML BAG IVPB SCH ×3 (01:31→19:30)
[2017-12-20 07:42] LABS: BASO % 0.6 % (0.0-2.0); HEMOGLOBIN 11.6 g/dL (11.0-16.0); LYMPH # 1.1 K/uL (1.0-4.3); LYMPH % 17.5 % (20.0-40.0); MEAN CELL VOLUME 83.5 fL (81.0-99.0); MEAN CORPUSCULAR HGB CONC 33.6 g/dL (33.0-37.0); MEAN PLATELET VOLUME 7.9 fL (7.2-11.7); MONO # 0.6 K/uL (0.0-0.8); MONO % 9.2 % (0.0-10.0); NEUT # 4.8 K/uL (1.8-7.0); NEUT % 72.7 % (50.0-75.0); RBC 4.13 Mil/uL (3.80-5.20); RED CELL DISTRIBUTION WIDTH 13.7 % (11.5-14.5); WHITE BLOOD COUNT 6.6 K/uL (4.8-10.8)
[2017-12-20 07:57] LABS: ALB/GLOB RATIO 1.1 (1.0-2.1); ALBUMIN 3.7 g/dL (3.5-5.0); ALT/SGPT 25 U/L (9-52); AST/SGOT 30 U/L (14-36); BLOOD UREA NITROGEN 9 mg/dL (7-17); CALCIUM 9.2 mg/dl (8.6-10.4); GFR AFRICAN-AMERICAN > 60; GFR NON-AFRICAN AMERICAN > 60
--- NOTE | 2017-12-20 09:10 | CP.PCM.PN ---
Subjective - Date & Time of Evaluation Date of Evaluation: 12/20/17 Time of Evaluation: 09:07 - Subjective Subjective: PGY-[address] Velasquez No acute events noted overnight. Patient still with diarrhea but with fewer episodes. She was anxious and concerned that her symptoms were very serious. Denied chest pain, fevers, vomiting. Objective - Vital Signs/Intake and Output Vital Signs (last 24 hours): Temp Pulse Resp BP Pulse Ox 99.2 F 108 H 20 104/67 97 12/19/17 22:15 12/19/17 22:15 12/19/17 22:15 12/19/17 22:15 12/19/17 22:15 Intake and Output: 12/20/17 12/20/17 06:59 18:59 Intake Total 1600 Balance 1600 - Medications Medications: Current Medications Acetaminophen (Tylenol 325mg Tab) 650 mg PO Q6 PRN PRN Reason: Pain, moderate (4-7) Last Admin: 12/20/17 02:46 Dose: 650 mg Enoxaparin Sodium (Lovenox) 40 mg SC DAILY [facility] Lactated Ringer's (Lactated Ringer's) 1,000 mls @ 150 mls/hr IV .Q6H40M [facility] Last Admin: 12/19/17 21:34 Dose: 150 mls/hr Ciprofloxacin (Cipro 400mg/200ml Dsw) 400 mg in 200 mls @ 133 mls/hr IVPB Q12H PJ PRN Reason: Protocol Last Admin: 12/19/17 20:34 Dose: Not Given Metronidazole (Flagyl) 500 mg in 100 mls @ 100 mls/hr IVPB Q8H PJ PRN Reason: Protocol Last Admin: 12/20/17 01:31 Dose: 100 mls/hr Magnesium Sulfate/Dextrose (Magnesium Sulfate 1 Gm/100 Ml D5w) 1 gm in 100 mls @ 300 mls/hr IVPB Q30M [facility] Stop: 12/20/17 10:04 Ondansetron HCl (Zofran Inj) 4 mg IVP Q6 PRN PRN Reason: Nausea/Vomiting Pantoprazole Sodium (Protonix Ec Tab) 40 mg PO DAILY [facility] Rosuvastatin Calcium (Crestor) 5 mg PO HS [facility] Last Admin: 12/19/17 22:33 Dose: 5 mg Saccharomyces Boulardii (Florastor) 250 mg PO DAILY [facility] - Labs Labs: 12/20/17 07:23 12/20/17 07:23 - Additional Findings Additional findings: - Constitutional Appears: No Acute Distress - Head Exam Head Exam: ATRAUMATIC, NORMAL INSPECTION - Eye Exam Eye Exam: EOMI, Normal appearance, PERRL Pupil Exam: NORMAL ACCOMODATION - ENT Exam ENT Exam: Mucous Membranes Moist - Respiratory Exam Respiratory Exam: Clear to Auscultation Bilateral, NORMAL BREATHING PATTERN - Cardiovascular Exam Cardiovascular Exam: Tachycardia, REGULAR RHYTHM, +S1, +S2 - GI/Abdominal Exam GI & Abdominal Exam: Normal Bowel Sounds, Soft, Tenderness (lower abdominal tenderness). absent: Distended, Firm, Guarding - Rectal Exam Rectal Exam: NORMAL INSPECTION. absent: Black Stool, Bloody Stool, Hemorrhoids - Extremities Exam Extremities exam: Positive for: normal capillary refill, normal inspection, pedal pulses present. Negative for: pedal edema, tenderness - Neurological Exam Neurological exam: Alert, Oriented x3 - Psychiatric Exam Psychiatric exam: Normal Affect, Normal Mood - Skin Skin Exam: Normal Color Assessment and Plan - Assessment and Plan (Free Text) Assessment: Vomiting/Diarrhea - secondary entercolitis - Abd/Pelvis CT: Findings are most compatible with nonspecific infectious/ inflammatory enterocolitis. No bowel obstruction. - Chest xray: no active pulmonary disease - Cdiff negative; stool occult negative; stool leukocytes positive; - f/u blood culture, ova and parasites, urine cx - afebrile; WBC 8.2 - Medications: * Metrondiazole 500mg q8h * Cipro 400mg q12h * Zofran q6 prn nausea * Florastor daily * LR @150cc/hr * Tylenol q6 prn for pain History of Gastritis - Protonix 40mg daily Prophylaxis - Liquid Diet - Protonix 40mg daily - SCDs - Lovenox 40mg daily Case discussed with Dr. Eva Bender PGY-2
[2017-12-20] MEDS: Magnesium Sulfate 1 gm in D5W 1 GM/100 ML BAG IVPB SCH ×2 (10:21→10:38)
[2017-12-20] MEDS: Pantoprazole 40 mg EC Tab PO SCH (10:21)
[2017-12-20] MEDS: Saccharomyces Boulardi 250 mg Cap PO SCH (10:21)
[2017-12-20] MEDS: Lactated Ringer's 1,000 ML IV SCH ×3 (10:27→21:57)
[2017-12-20] MEDS: Enoxaparin 40 mg Syringe SC SCH (10:33)
[2017-12-20] MEDS: Ciprofloxacin 400mg/200ml D5W 400 MG/200 ML BAG IVPB SCH (14:16)
--- NOTE | 2017-12-20 17:15 | CARD ---
APPROVED REPORT EKG Measurement Heart [id number] <Conclusion> Normal sinus rhythm Nonspecific ST and T wave abnormality Abnormal ECG
[2017-12-21] MEDS: metroNIDAZOLE IV 500 mg/100 ml 500 MG/100 ML BAG IVPB SCH ×3 (00:58→18:25)
[2017-12-21] MEDS: Ciprofloxacin 400mg/200ml D5W 400 MG/200 ML BAG IVPB SCH ×2 (02:51→13:41)
[2017-12-21] MEDS: Lactated Ringer's 1,000 ML IV SCH ×4 (06:04→21:37)
[2017-12-21 08:09] LABS: BASO % 0.4 % (0.0-2.0); EOS # 0.1 K/uL (0.0-0.7); EOS % 1.5 % (0.0-4.0); LYMPH # 1.3 K/uL (1.0-4.3); MEAN CELL VOLUME 83.1 fL (81.0-99.0); MEAN CORPUSCULAR HEMOGLOBIN 28.3 pg (27.0-31.0); MEAN PLATELET VOLUME 7.7 fL (7.2-11.7); MONO # 0.7 K/uL (0.0-0.8); MONO % 11.9 % (0.0-10.0); NEUT # 3.9 K/uL (1.8-7.0); NEUT % 64.2 % (50.0-75.0); RBC 3.89 Mil/uL (3.80-5.20); RED CELL DISTRIBUTION WIDTH 13.6 % (11.5-14.5); WHITE BLOOD COUNT 6.1 K/uL (4.8-10.8)
[2017-12-21 09:28] LABS: ALBUMIN 3.2 g/dL (3.5-5.0); ALT/SGPT 26 U/L (9-52); AST/SGOT 27 U/L (14-36); BLOOD UREA NITROGEN 7 mg/dL (7-17); CALCIUM 8.6 mg/dl (8.6-10.4); GFR AFRICAN-AMERICAN > 60; GFR NON-AFRICAN AMERICAN > 60
[2017-12-21] MEDS: Enoxaparin 40 mg Syringe SC SCH (10:11)
[2017-12-21] MEDS: Saccharomyces Boulardi 250 mg Cap PO SCH (10:11)
[2017-12-21] MEDS: Pantoprazole 40 mg EC Tab PO SCH (10:11)
[2017-12-21] MEDS ORDERED: Potassium Chloride 20 mEq ER Tab PO ONE (11:15)
--- NOTE | 2017-12-21 18:17 | CP.PCM.PN ---
Subjective - Date & Time of Evaluation Date of Evaluation: 12/21/17 Time of Evaluation: 10:30 - Subjective Subjective: Medicine progress note for Dr. Velasquez's service Patient seen and examined. Multiple family members present at bedside. Patient states her diarrhea has improved slightly and has had fewer episodes. She reports green colored stools. She states she was able to eat some banana without nausea or vomiting. Discussed eating bland diet with patient and slowly advancing as tolerated. Patient admits to poor appetite currently. Objective - Vital Signs/Intake and Output Vital Signs (last 24 hours): Temp Pulse Resp BP Pulse Ox 97.9 F 83 20 112/68 97 12/21/17 16:00 12/21/17 16:00 12/21/17 16:00 12/21/17 16:00 12/21/17 16:00 Intake and Output: 12/21/17 12/21/17 06:59 18:59 Intake Total 3120 1900 Balance 3120 1900 - Medications Medications: Current Medications Acetaminophen (Tylenol 325mg Tab) 650 mg PO Q6 PRN PRN Reason: Pain, moderate (4-7) Last Admin: 12/20/17 02:46 Dose: 650 mg Enoxaparin Sodium (Lovenox) 40 mg SC DAILY [facility] Last Admin: 12/21/17 10:11 Dose: 40 mg Metronidazole (Flagyl) 500 mg in 100 mls @ 100 mls/hr IVPB Q8H PJ PRN Reason: Protocol Last Admin: 12/21/17 10:12 Dose: 100 mls/hr Ciprofloxacin (Cipro 400mg/200ml Dsw) 400 mg in 200 mls @ 133 mls/hr IVPB Q12H JP PRN Reason: Protocol Last Admin: 12/21/17 13:41 Dose: 133 mls/hr Lactated Ringer's (Lactated Ringer's) 1,000 mls @ 200 mls/hr IV .Q5H [facility] Last Admin: 12/21/17 17:55 Dose: Not Given Ondansetron HCl (Zofran Inj) 4 mg IVP Q6 PRN PRN Reason: Nausea/Vomiting Last Admin: 12/20/17 10:21 Dose: 4 mg Pantoprazole Sodium (Protonix Ec Tab) 40 mg PO DAILY [facility] Last Admin: 12/21/17 10:11 Dose: 40 mg Rosuvastatin Calcium (Crestor) 5 mg PO HS [facility] Last Admin: 12/20/17 21:54 Dose: 5 mg Saccharomyces Boulardii (Florastor) 250 mg PO DAILY [facility] Last Admin: 12/21/17 10:11 Dose: 250 mg - Labs Labs: 12/21/17 07:46 12/21/17 07:46 - Constitutional Appears: No Acute Distress - Head Exam Head Exam: ATRAUMATIC, NORMOCEPHALIC - Eye Exam Eye Exam: EOMI - ENT Exam ENT Exam: Mucous Membranes Moist - Respiratory Exam Respiratory Exam: Clear to Ausculation Bilateral, NORMAL BREATHING PATTERN - Cardiovascular Exam Cardiovascular Exam: +S1, +S2 - GI/Abdominal Exam GI & Abdominal Exam: Soft, Tenderness (mild lower abdominal tenderness), Normal Bowel Sounds. absent: Distended, Firm, Guarding - Extremities Exam Extremities Exam: Normal Capillary Refill, Normal Inspection. absent: Pedal Edema - Neurological Exam Neurological Exam: Alert, Awake, Oriented x3 - Psychiatric Exam Psychiatric exam: Normal Affect - Skin Skin Exam: Warm Assessment and Plan - Assessment and Plan (Free Text) Assessment: Vomiting/Diarrhea - secondary entercolitis - Abd/Pelvis CT: Findings are most compatible with nonspecific infectious/ inflammatory enterocolitis. No bowel obstruction. - Chest xray: no active pulmonary disease - Cdiff negative; stool occult negative; stool leukocytes positive - ova and parasite negative - afebrile; WBC 6.1 - Medications: * Metrondiazole 500mg q8h * Cipro 400mg q12h * Zofran q6 prn nausea * Florastor daily * LR @200cc/hr * Tylenol q6 prn for pain History of Gastritis - Protonix 40mg daily Prophylaxis - bland diet - Protonix 40mg daily - SCDs - Lovenox 40mg daily Case discussed with Dr. Velasquez
[2017-12-22] MEDS: metroNIDAZOLE IV 500 mg/100 ml 500 MG/100 ML BAG IVPB SCH ×2 (00:41→08:59)
[2017-12-22] MEDS: Ciprofloxacin 400mg/200ml D5W 400 MG/200 ML BAG IVPB SCH ×2 (01:59→14:11)
[2017-12-22] MEDS: Lactated Ringer's 1,000 ML IV SCH ×3 (02:20→08:46)
[2017-12-22 06:53] LABS: BASO % 0.8 % (0.0-2.0); EOS # 0.3 K/uL (0.0-0.7); EOS % 5.1 % (0.0-4.0); HEMOGLOBIN 9.9 g/dL (11.0-16.0); LYMPH # 1.4 K/uL (1.0-4.3); LYMPH % 27.2 % (20.0-40.0); MEAN CELL VOLUME 82.6 fL (81.0-99.0); MEAN CORPUSCULAR HEMOGLOBIN 28.4 pg (27.0-31.0); MEAN CORPUSCULAR HGB CONC 34.3 g/dL (33.0-37.0); MEAN PLATELET VOLUME 7.6 fL (7.2-11.7); MONO # 0.7 K/uL (0.0-0.8); MONO % 13.6 % (0.0-10.0); NEUT # 2.8 K/uL (1.8-7.0); NEUT % 53.3 % (50.0-75.0); RBC 3.5 Mil/uL (3.80-5.20); RED CELL DISTRIBUTION WIDTH 13.7 % (11.5-14.5); WHITE BLOOD COUNT 5.2 K/uL (4.8-10.8)
[2017-12-22 07:08] LABS: ALBUMIN 2.7 g/dL (3.5-5.0); ALT/SGPT 26 U/L (9-52); AST/SGOT 27 U/L (14-36); BLOOD UREA NITROGEN 4 mg/dL (7-17); CALCIUM 8.5 mg/dl (8.6-10.4); GFR AFRICAN-AMERICAN > 60; GFR NON-AFRICAN AMERICAN > 60
[2017-12-22] MEDS ORDERED: Potassium Chloride 20 mEq ER Tab PO ONE (08:29)
[2017-12-22] MEDS ORDERED: Lactated Ringer's 1,000 ML IV SCH (08:30)
[2017-12-22] MEDS: Enoxaparin 40 mg Syringe SC SCH (09:00)
[2017-12-22] MEDS: Pantoprazole 40 mg EC Tab PO SCH (09:00)
[2017-12-22] MEDS: Saccharomyces Boulardi 250 mg Cap PO SCH (09:00)
--- NOTE | 2017-12-22 14:46 | CP.PCM.DIS ---
Provider - Provider Date of Admission: 12/19/17 18:55 Attending physician: Arnoldo Velasquez Jr, MD Primary care physician: Dr. Lilia Ellis Time Spent in preparation of Discharge (in minutes): 40 Diagnosis - Discharge Diagnosis (1) Diarrhea Status: Acute Comment: Patient was treated for diarrhea while hospitalized. C.diff colitis was ruled out. Stool was negative for occult blood. Stool was also negative for ova and parasite. Stool culture result is pending and patient will need to follow up final result with her primary care physician. Hospital Course - Lab Results Lab Results: Micro Results 12/19/17 16:30 Blood Blood Culture - Preliminary NO GROWTH AFTER 48 HOURS 12/19/17 16:20 Blood Blood Culture - Preliminary NO GROWTH AFTER 48 HOURS 12/19/17 20:40 Stool Ova and Parasite Concentrate Exam - Final 12/19/17 17:29 Urine Urine Culture - Final No Growth (<1,000 CFU/ML) Most Recent Lab Values WBC 5.2 K/uL (4.8-10.8) 12/22/17 06:45 RBC 3.50 Mil/uL (3.80-5.20) L 12/22/17 06:45 Hgb 9.9 g/dL (11.0-16.0) L 12/22/17 06:45 Hct 28.9 % (34.0-47.0) L 12/22/17 06:45 MCV 82.6 fL (81.0-99.0) 12/22/17 06:45 MCH 28.4 pg (27.0-31.0) 12/22/17 06:45 MCHC 34.3 g/dL (33.0-37.0) 12/22/17 06:45 RDW 13.7 % (11.5-14.5) 12/22/17 06:45 Plt Count 276 K/uL (130-400) 12/22/17 06:45 MPV 7.6 fL (7.2-11.7) 12/22/17 06:45 Neut % (Auto) 53.3 % (50.0-75.0) 12/22/17 06:45 Lymph % (Auto) 27.2 % (20.0-40.0) 12/22/17 06:45 [place] % (Auto) 13.6 % (0.0-10.0) H 07/01/18 06:45 Eos % (Auto) 5.1 % (0.0-4.0) H 12/22/17 06:45 Baso % (Auto) 0.8 % (0.0-2.0) 12/22/17 06:45 Neut # (Auto) 2.8 K/uL (1.8-7.0) 12/22/17 06:45 Lymph # (Auto) 1.4 K/uL (1.0-4.3) 12/22/17 06:45 [place] # (Auto) 0.7 K/uL (0.0-0.8) 12/22/17 06:45 Eos # (Auto) 0.3 K/uL (0.0-0.7) 12/22/17 06:45 Baso # (Auto) 0.0 K/uL (0.0-0.2) 12/22/17 06:45 Sodium 139 mmol/L (132-148) 12/22/17 06:45 Potassium 3.3 mmol/L (3.6-5.2) L 12/22/17 06:45 Chloride 103 mmol/L (98-107) 12/22/17 06:45 Carbon Dioxide 28 mmol/L (22-30) 12/22/17 06:45 Anion Gap 11 (10-20) 12/22/17 06:45 BUN 4 mg/dL (7-17) L 12/22/17 06:45 Creatinine 0.7 mg/dL (0.7-1.2) 12/22/17 06:45 Est GFR ( Amer) > 60 12/22/17 06:45 Est GFR (Non-Af Amer) > 60 12/22/17 06:45 Random Glucose 102 mg/dL (65-105) 12/22/17 06:45 Calcium 8.5 mg/dl (8.6-10.4) L 12/22/17 06:45 Phosphorus 2.9 mg/dL (2.5-4.5) 12/22/17 06:45 Magnesium 1.8 mg/dL (1.6-2.3) 12/22/17 06:45 Total Bilirubin 0.2 mg/dL (0.2-1.3) 12/22/17 06:45 AST 27 U/L (14-36) 12/22/17 06:45 ALT 26 U/L (9-52) 12/22/17 06:45 Alkaline Phosphatase 59 U/L (38-126) 12/22/17 06:45 Troponin I < 0.0120 ng/mL (0.00-0.120) 12/19/17 16:25 Total Protein 5.5 g/dL (6.3-8.3) L 12/22/17 06:45 Albumin 2.7 g/dL (3.5-5.0) L 12/22/17 06:45 Globulin 2.8 gm/dL (2.2-3.9) 12/22/17 06:45 Albumin/Globulin Ratio 1.0 (1.0-2.1) 12/22/17 06:45 Lipase 260 U/L (23-300) 12/19/17 16:25 Urine Color Yellow (YELLOW) 12/19/17 17:29 Urine Clarity Clear (Clear) 12/19/17 17:29 Urine pH 5.0 (5.0-8.0) 12/19/17 17:29 Ur Specific [place] 1.010 (1.003-1.030) 12/19/17 17:29 Urine Protein Negative mg/dL (NEGATIVE) 12/19/17 17:29 Urine Glucose (UA) Normal mg/dL (Normal) 12/19/17 17:29 Urine Ketones Trace mg/dL (NEGATIVE) 12/19/17 17:29 Urine Blood 1+ (NEGATIVE) H 12/19/17 17:29 Urine Nitrate Negative (NEGATIVE) 12/19/17 17:29 Urine Bilirubin Negative (NEGATIVE) 12/19/17 17:29 Urine Urobilinogen Normal mg/dL (0.2-1.0) 12/19/17 17:29 Ur Leukocyte Esterase Neg Margaux/uL (Negative) 12/19/17 17:29 Urine WBC (Auto) 1 /hpf (0-5) 12/19/17 17:29 Urine RBC (Auto) 6 /hpf (0-3) H 12/19/17 17:29 Ur Squamous Epith Cells < 1 /hpf (0-5) 12/19/17 17:29 Stool Occult Blood Negative (NEGATIVE) 12/19/17 21:01 Stool Leukocytes, Qual Positive (NEGATIVE) H 12/19/17 20:40 C. difficile Ag & Toxin Negative (NEGATIVE) 12/19/17 19:58 - Hospital Course Hospital Course: On Admission: 72 year old female with past medical history of acid reflux presents to the ER for vomiting and diarrhea. Patient states the episodes started on Saturday evening with lower abdominal pain. She denies eating anything abnormal as she is a vegetarian. Patient states she had 20 episodes of watery diarrhea today and 4 episodes of vomiting. Patient denies blood in her stool or vomit. She denies taking antibiotics in the past couple of months. She denies sick contacts or recent travel. She states every time she eats she has diarrhea and for that reason she started wearing a diaper. She states she felt like she had a fever at home and now she has been having chills. She denies shortness of breath, chest pain, dysuria, hematuria or headache. During hospitalization: Patient had abdominal CT scan: Abd/Pelvis CT: Findings are most compatible with nonspecific infectious/ inflammatory enterocolitis. No bowel obstruction. Patient had chest xray: Chest xray: no active pulmonary disease Patient had the following testing: - Cdiff negative; stool occult negative - stool leukocytes positive - ova and parasite negative - stool culture pending Patient was given IV hydration and diet was slowly advanced as tolerated. Patient's electrolytes were monitored daily and repleted. On Discharge: Patient is stable for discharge home with services per Dr. Velasquez. Patient completed two full days of antibiotic treatment and partial third day of antibiotics. Patient is to be discharged home with antibiotics to finish total 7 days of treatment. Patient is also being prescribed probiotic. Patient is to follow up with her primary medical doctor, Dr. Ellis within the next week. Patient is to return to the ED if her symptoms worsen or reoccur. This was explained to the patient and her daughter who understand and agree. Patient and her family do not want patient to be discharged to rehab. Patient prefers home physical therapy. This was discussed with patient's and daughter, as well as nursing staff. This is only a summary of patient's hospitalization, for more detail please see complete record. Discharge Exam - Head Exam Head Exam: ATRAUMATIC, NORMOCEPHALIC - Eye Exam Eye Exam: EOMI - ENT Exam ENT Exam: Mucous Membranes Moist - Respiratory Exam Respiratory Exam: Clear to PA & Lateral, NORMAL BREATHING PATTERN - Cardiovascular Exam Cardiovascular Exam: +S1, +S2 - GI/Abdominal Exam GI & Abdominal Exam: Normal Bowel Sounds, Soft. absent: Distended, Firm, Guarding, Rebound, Rigid, Tenderness - Extremities Exam Extremities exam: normal inspection - Neurological Exam Neurological exam: Alert, Oriented x3 - Psychiatric Exam Psychiatric exam: Normal Affect - Skin Skin Exam: Dry, Warm Discharge Plan - Discharge Medications Prescriptions: Ciprofloxacin HCl [Cipro] 500 mg PO Q12H #5 tablet metroNIDAZOLE [Flagyl] 500 mg PO Q8H #7 tab Saccharomyces Boulardi [Florastor] 250 mg PO DAILY #30 cap - Follow Up Plan Condition: FAIR Disposition: HOME/ ROUTINE Instructions: Diarrhea in Adolescents and Adults, Nutrition Tips for Relief of Diarrhea (DC), Rotavirus Infection (DC), Rotavirus Infection (GEN), Nutrition Tips for Relief of Diarrhea (GEN) Additional Instructions: Patient is stable for discharge home per Dr. Velasquez. Patient completed two full days of antibiotic treatment and partial third day of antibiotics. Patient is to be discharged home with antibiotics to finish total 7 days of treatment. Patient is also being prescribed probiotic. Patient is to follow up with her primary medical doctor, Dr. Ellis within the next week. Patient is to return to the ED if her symptoms worsen or reoccur. This was explained to the patient and her daughter who understand and agree. Referrals: Glenna Ellis MD [Staff Provider] - 7 Days
[2017-12-22 15:29] VITALS: BP 108/71; PULSE 77; TEMP 98; O2SAT 98
== END 2017-12-22 16:12 | disposition home or self-care (01) | DRG 392 ==
LOC: C.ER 13:51 → C.9E 18:55 → C.3T 21:42
PROVIDERS: ADMIT Internal Medicine; ATTEND Internal Medicine
DX: A09 Infectious gastroenteritis and colitis, unspecified (principal); E78.00 Pure hypercholesterolemia, unspecified; K21.9 Gastro-esophageal reflux disease without esophagitis; M81.0 Age-related osteoporosis without current pathological fracture